=== PATIENT | male | born 1945 | race American Indian/Alaskan Native ===

== ENCOUNTER 2018-12-27 06:24 | Day surgery (SDC) | payer MEDICARE, OTHER ==
[~2018-12-27 06:24] MED LIST: NACL 0.9% 1000 ML 1,000 ML IV SCH
[2018-12-27] MEDS ORDERED: WATER FOR IRRIG STERILE IR ONE (07:28)
[2018-12-27] MEDS ORDERED: WATER FOR IRRIG STERILE ONE (07:29)
[2018-12-27] MEDS ORDERED: DIPRIVAN 10 MG/ML IV ONE ×2 (07:51→07:52)
[2018-12-27] MEDS ORDERED: VERSED ONE (07:52)
[2018-12-27] MEDS ORDERED: XYLOCAINE 2% INFILTRATI ONE (07:52)
[2018-12-27] MEDS ORDERED: NACL 0.9% 1000 ML 1,000 ML IV SCH (08:00)
--- NOTE | 2018-12-27 08:07 | Operative Report ---
Operative Report Operative Report: SURGEON: Darrell Swain MD DATE 12/27/2018 EGD with biopsy REPORT PREOPERATIVE DIAGNOSIS and POSTOPERATIVE DIAGNOSIS: Abdominal pain ESTIMATED BLOOD LOSS: minimal DESCRIPTION OF PROCEDURE: A high-resolution EGD scope was passed through the oropharynx, esophagus, stomach, and second portion of duodenum. The scope was carefully withdrawn. Retroflexion was performed in the stomach. At the end of the procedure, the scope was cleaned using normal technique. Vital signs monitored continuously throughout. SEDATION: Provided by [facility]. COMPLICATIONS: None. FINDINGS: * No gross lesions in the entire examined duodenum * Moderate hemorrhagic gastritis of the antrum and body of the stomach. Biopsies were taken to rule out H. Pylori infection. A total of 6 biopsies were taken, 2 from the antrum, 1 from the incisura, 2 from the body. * GE junction at 42cm from the incisors * Multiple scattered submucosal blebs 4-8mm in size scattered throughout the esophagus. Benign appearing * Remainder of the exam was normal RECOMMENDATIONS: * f/u path results, ensure on anti-acid medication
--- NOTE | 2018-12-27 08:37 | Operative Report ---
Operative Report Operative Report: Date of service 12/27/2018 SURGEON: Darrell Swain MD COLONOSCOPY with snare polypectomy and biopsy polypectomy REPORT PREOPERATIVE AND POSTOPERATIVE DIAGNOSIS: Screening colonoscopy DESCRIPTION OF PROCEDURE: The colonoscope was passed to the terminal ileum as identified by the ileal tissue. Scope was carefully withdrawn. Retroflexion was performed in the rectum. At the end of procedure, the scope was cleaned using normal technique. Vital signs monitored continuously throughout. SEDATION: Provided by [facility]. Quality of the prep was good COMPLICATIONS: None. ESTIMATED BLOOD LOSS: minimal FINDINGS: * 4mm pedunculated descending colon polyp removed by cold snare polypectomy * 3mm sigmoid colon polyp, sessile, removed by cold forceps polypectomy * 13mm sessile polyp in the rectum. Appears consistent with more advanced histology. 3cc saline was injected beneath the polyp to lift it, then hot snare polypectomy was successfully performed with en-bloc resection of the polyp * Small internal hemorrhoids * Remainder of the exam was normal * Normal terminal ileum RECOMMENDATIONS: * repeat colonoscopy 1-3 years based upon the pathology results of the large rectal polyp
[2018-12-27 09:20] VITALS: BP 138/84
--- NOTE | 2018-12-27 12:47 | Anesthesia Day of Surgery ---
Anesthesia Day of Surgery - Day of Surgery Patient Examined: Yes Patient H&P Reviewed: Yes Patient is NPO: Yes Beta Blockers: No Cardiac Clearance: No Pulmonary Clearance: No
--- NOTE | 2018-12-27 12:48 | Anesthesia Consultation ---
Anesthesia Consult and Med Hx Date of service: 12/27/18 - Airway Anesthetic Teeth Evaluation: Good ROM Head & Neck: Adequate Mental/Hyoid Distance: Adequate Mallampati Class: Class III Intubation Access Assessment: Good - Pulmonary Exam CTA: Yes - Cardiac Exam Cardiac Exam: No Murmur - Pre-Operative Health Status ASA Pre-Surgery Classification: ASA2 - Pulmonary Hx Smoking: No Hx Asthma: No Hx Respiratory Symptoms: No SOB: No COPD: No Home Oxygen Therapy: No Hx Pneumonia: No Hx Sleep Apnea: No - Cardiovascular System Hx Hypertension: No Hx Coronary Artery Disease: No Hx Heart Attack/AMI: No Hx Angina: No Hx Percutaneous Transluminal Coronary Angioplasty (PTCA): No Hx Cardia Arrhythmia: No Hx Pacemaker: No Hx Internal Defibrillator: No Hx Valvular Heart Disease: No Hx Heart Murmur: No Hx Peripheral Vascular Disease: No - Central Nervous System Hx Neuromuscular Disorder: No Hx Seizures: No CVA: No Hx Back Pain: No Hx Psychiatric Problems: No - Gastrointestinal Hx Ulcer: No Hx Gastroesophageal Reflux Disease: No - Endocrine Hx Renal Disease: No Hx End Stage Renal Disease: No Hx Cirrhosis: No Hx Liver Disease: Yes (LIVER LESION) Hx Insulin Dependent Diabetes: No Hx Non-Insulin Dependent Diabetes: No Hx Thyroid Disease: No Hx Hypothyroidism: No Hx Hyperthyroidism: No - Hematic Hx Anemia: No Hx Sickle Cell Disease: No - Other Systems Hx Alcohol Use: No Hx Substance Use: No Hx Cancer: No Hx Obesity: No
== END 2018-12-27 06:25 | disposition home or self-care (01) ==
LOC: GIO 06:24
PROVIDERS: ATTEND Student in an Organized Health Care Education/Training Program
DX: C20 Malignant neoplasm of rectum (principal); K63.5 Polyp of colon; K64.8 Other hemorrhoids; K29.50 Unspecified chronic gastritis without bleeding; B96.81 Helicobacter pylori [H. pylori] as the cause of diseases classified elsewhere; K31.89 Other diseases of stomach and duodenum
CPT/HCPCS: 43239; 45380; 45381; 45385; 88305; 88342; J2250; J2704; J7030

== ENCOUNTER 2019-01-24 06:49 | Day surgery (SDC) | payer OTHER ==
[2019-01-24] MEDS ORDERED: NACL 0.9% 1000 ML 1,000 ML IV SCH (07:00)
[2019-01-24] MEDS ORDERED: WATER FOR IRRIG STERILE IR ONE (07:32)
[2019-01-24] MEDS ORDERED: WATER FOR IRRIG STERILE ONE (07:32)
[2019-01-24] MEDS ORDERED: XYLOCAINE 1% 20 mL ONE (07:51)
[2019-01-24] MEDS ORDERED: DIPRIVAN 10 MG/ML IV ONE ×2 (07:51)
--- NOTE | 2019-01-24 08:27 | Operative Report ---
Operative Report Operative Report: DATE OF SERVICE: 01/24/2019 SURGEON: Darrell Swain MD Flexible Sigmoidoscopy with snare polypectomy REPORT PREOPERATIVE AND POSTOPERATIVE DIAGNOSIS: PH colon cancer DESCRIPTION OF PROCEDURE: The EGD scope was passed to the sigmoid colon. Scope was carefully withdrawn. Retroflexion was performed in the rectum. At the end of procedure, the scope was cleaned using normal technique. Vital signs monitored continuously throughout. SEDATION: Provided by [facility]. Quality of the prep was good COMPLICATIONS: None. ESTIMATED BLOOD LOSS: minimal FINDINGS: * Post-polypectomy scar in the rectum seen from the recent colonoscopy. As the pathologist documented positive margins effort was made to remove all tissue in the immediate vicinity of the central area of scar. 5cc Normal saline was injected with a needle to attempt to raise the tissue. Next a hex snare was used to piecemeal resect as much tissue as possible from the area of the polypectomy, using both hot and cold snare. However this was very difficult due to the scar tissue present from the polypectomy. Lastly cold biopsy forceps were used to extensively biopsy the area to attempt to ensure there was no dysplastic tissue left. * Next, in a separate bottle, extensive biopsies of the post-polypectomy site were taken to r/o any missed dysplastic tissue RECOMMENDATIONS: * Repeat flex sig in 6 months to ensure no new polyp growth in the area. If however the second bottle shows residual dysplastic tissue, refer to advanced endoscopy for further attempts at polypectomy.
[2019-01-24 09:27] VITALS: BP 132/80
--- NOTE | 2019-01-24 09:41 | Anesthesia Consultation ---
Anesthesia Consult and Med Hx Date of service: 01/24/19 - Airway Anesthetic Teeth Evaluation: Poor (multiple missing ) ROM Head & Neck: Adequate Mental/Hyoid Distance: Adequate Mallampati Class: Class II Intubation Access Assessment: Probably Good - Pulmonary Exam CTA: Yes - Cardiac Exam Cardiac Exam: RRR - Pre-Operative Health Status ASA Pre-Surgery Classification: ASA2 Proposed Anesthetic Plan: MAC - Pre-Anesthesia Comment Pre-Anesthesia Comments: colonoscopy 12/2018. Rectal Ca,Positive margins per pathology post polypectomy. - Gastrointestinal Hx Gastroesophageal Reflux Disease: Yes - Other Systems Hx Cancer: Yes (Rectal )
--- NOTE | 2019-01-24 09:43 | Anesthesia Day of Surgery ---
Anesthesia Day of Surgery - Day of Surgery Patient Examined: Yes Patient H&P Reviewed: Yes Patient is NPO: Yes
== END 2019-01-24 06:50 | disposition home or self-care (01) ==
LOC: GIO 06:49
PROVIDERS: ATTEND Student in an Organized Health Care Education/Training Program
DX: K62.1 Rectal polyp (principal); K21.9 Gastro-esophageal reflux disease without esophagitis; E78.00 Pure hypercholesterolemia, unspecified; Z85.048 Personal history of other malignant neoplasm of rectum, rectosigmoid junction, and anus; Z79.899 Other long term (current) drug therapy; Z98.49 Cataract extraction status, unspecified eye; Z98.890 Other specified postprocedural states
CPT/HCPCS: 45335; 45338; 88305; J2704; J7030

== ENCOUNTER 2019-12-16 08:48 | Outpatient (CLI) | payer OTHER, MEDICARE ==
[2019-12-16 09:54] LABS: Blood Urea Nitrogen 9 mg/dL (9-20)
--- NOTE | 2019-12-16 12:28 | Cat Scan Report ---
CT chest, abdomen, and pelvis with contrast INDICATION : R10.13Epigastric pain/K31.89Other diseases of stomach and duodenu. TECHNIQUE: 100 mL of intravenous contrast administered.. All CT scans at this location are performe d using CT dose reduction for ALARA by means of automated exposure control. COMPARISON: None FINDINGS: Chest: The heart and great vessels appear normal. No pathologic mediastinal adenopathy. The lungs ar e clear. There are degenerative changes in the spine with nothing acute. Abdomen/pelvis: Several small cysts are seen throughout the liver. The gallbladder, spleen, pancreas , adrenals, kidneys, and proximal GI tract appear unremarkable. Urinary bladder is unremarkable. Prostate is enlarged and indents the bladder base. No pelvic free fl uid. There is moderate colonic stool burden involving the majority of the colon. The terminal ileum i s also mildly distended and the distal small bowel is fluid-filled. The appendix is normal. Moderatel y advanced degenerative changes are present in the spine and pelvis. IMPRESSION: 1. Findings of constipation with mild obstructive effect in the distal small bowel given moderate col onic stool burden. 2. Otherwise nothing acute. Incidental findings as above. Signer Name: Donald Sherman MD Signed: 12/16/2019 12:24 PM Workstation Name: [id number]
== END 2019-12-16 08:49 | disposition home or self-care (01) ==
LOC: CT 08:48
PROVIDERS: ATTEND Student in an Organized Health Care Education/Training Program
DX: N40.0 Benign prostatic hyperplasia without lower urinary tract symptoms (principal); M47.814 Spondylosis without myelopathy or radiculopathy, thoracic region; K76.89 Other specified diseases of liver; K59.09 Other constipation; M16.10 Unilateral primary osteoarthritis, unspecified hip; R63.4 Abnormal weight loss; Z85.048 Personal history of other malignant neoplasm of rectum, rectosigmoid junction, and anus
CPT/HCPCS: 36415; 71260; 74177; 82565; 84520; Q9967